=== PATIENT | female | born 2000 | race Caucasian/White ===

== ENCOUNTER 2022-03-19 00:19 | Emergency (ER) | payer OTHER ==
[~2022-03-19] VITALS: Ht 172.7 cm; Wt 58.5 kg
--- NOTE | 2022-03-19 01:45 | NUR ---
TO ER BED 2. BIBS C/O R ELBOW LACERATION BY GLASS, PT DOES NOT RECALL LAST TDAP. CONNECTED TO MONITOR. AWAITING MD ROBLERO
--- NOTE | 2022-03-19 02:05 | NUR ---
xray at bedside
[2022-03-19] MEDS ORDERED: LIDOCAINE /MPF 1% VIAL 5 ML VIAL ONE (03:18)
[2022-03-19 03:54] VITALS: BP 126/80
--- NOTE | 2022-03-19 03:54 | NUR ---
Patient discharged to home in stable condition. Written and verbal after care instructions given. Patient verbalizes understanding of instruction.
== END 2022-03-19 03:54 | disposition home or self-care (01) ==
LOC: ER 00:31
DX: S51.011A Laceration without foreign body of right elbow, initial encounter (principal); W25.XXXA Contact with sharp glass, initial encounter; Y93.89 Activity, other specified; Y92.89 Other specified places as the place of occurrence of the external cause; Y99.0 Civilian activity done for income or pay
CPT/HCPCS: 12001; 73070; 99283; J3490